=== PATIENT | female | born 1980 | race Caucasian/White ===

== ENCOUNTER 2025-05-31 07:00 | Day surgery (SDC) | payer OTHER, SELFPAY ==
[2025-05-27 10:33] VITALS: BMI 22.2
--- NOTE | 2025-05-31 07:31 | WPDHPUPDATE1 ---
History and Physical Update Update Date/Time: 05/31/25 07:31 History and Physical has been reviewed, including an updated exam of the patient. There are NO changes in the patient's condition. Risks, benefits, and alternatives have been discussed and questions answered. Patient agrees to proceed with procedure.
--- OUTSIDE RECORDS SUMMARY | 2025-05-31 08:10 | XMS_ITS | Clinical Summary ---
Author Organization [facility] Address [address] [place] [id number] Care Team Providers Care Feather Baler Name Role Phone No, Physician Primary Care Provider [phone] Allergies No known active allergies Immunizations Immunization Administration Dates Next Due DTP 1980,1980,1980 Influenza, Quadrivalent, Spl it, Preservative Free, Intramuscular 03/26/2018 Influenza, Unspecified 06/17/2024 OPV 1980,1980,1980 Medical History Medical History Date Comments Asthma Social History Tobacco Use Types Packs/Day Years Used Date Smoking Tobacco: Every Day Cigarettes Smokeless Tobacco: Never Alcohol Use Standard Drinks/Week Comments Not Currently 0 (1 standard drink = 0.6 oz pur e alcohol) Personal Safety Answer Date Recorded Getting School Help Needed Not on file 08/09 Comments No Sex and Gender Information Value Date Recorded Sex Assigned at Not on file Legal Sex Female 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 Gender Identity Not on file Sexual Orientation Not on file Last Filed Vital Signs Vital Sign Reading Time Taken Comments Blood Pressure 133/89 12/26/2021 11:33 PM CDT Pulse 87 12/26/2021 11:33 PM CDT Temperature 37 C (98.6 F) 12/26/2021 11:33 PM CDT Respiratory Rate 16 12/26/2021 11:33 PM CDT Oxygen Saturation 97% 12/26/2021 11:33 PM CDT Inhaled Oxygen Concentration - - Weight 46.7 kg (103 lb) 12/26/2021 11:33 PM CDT Height 149.9 cm (4' 11) 12/26/2021 11:33 PM CDT Body Mass Index 20.8 12/26/2021 11:33 PM CDT Plan of Treatment Not on file Insurance [facility] Care Teams Feather Baler Relationship Specialty Start Date End Date No, Physician PCP - General 12/27/21
--- OUTSIDE RECORDS SUMMARY | 2025-05-31 08:10 | XMS_ITS | Clinical Summary ---
Author Organization [facility] Address [address] [place] [id number] Care Team Providers Care Lens Block Gauger Name Role Phone Unavailable Primary Care Provider Unavailabl e Encounters Date Type Department Care Team Description 05/18/2025 Telephone [facility] Family Medicine - [address] [place] [address] Romelia Garcia, ENVIRONMENTAL ENGINEERING INTERN Appointment Reminder from Last 3 Months Social History Tobacco Use Types Packs/Day Years Used Date Smoking Tobacco: Never Assessed Comments Unknown Sex and Gender Information Value Date Recorded Sex Assigned at Female 05/17/2025 2:27 PM RESEARCH CLERK Legal Sex Female 10:18 AM RESEARCH CLERK Gender Identity Female 05/17/2025 2:27 PM RESEARCH CLERK Sexual Orientation Straight 05/17/2025 2: 27 PM RESEARCH CLERK Plan of Treatment Health Maintenance Due Date Last Done Comments Cervical Cancer Screening Pa p Smear (Age 30 to 64) Every 3 Years 1980 Colorectal Cancer Screening Colonoscopy (10 Years) 1980 Annual Physical 02/01/1983 Hepatitis C 02/01/1998 DTaP, Tdap and Td Vaccines ( 1 - Tdap) 02/01/1999 Hepatitis B Vaccines (1 of 3 - 19+ 3-dose series) 02/01/1999 HPV Vaccines (1 - 3-dose SCD M series) 02/01/2007 Cervical Cancer Screening Pa p with HPV Testing (Age 30 to 64) Every 5 Years 02/01/2010 Cervical Cancer Screening with HPV 02/01/2010 Mammogram Screening 2020 COVID-19 Vaccine (2024-2 6 season) 2025 Influenza Adult (#1) 2025 Hepatitis A Vaccines Aged Out No long er eligible based on patient's age to complete this topic Meningococcal B Vaccine Aged Out No l onger eligible based on patient's age to complete this topic Meningococcal Vaccine Aged Out No deandre daren eligible based on patient's age to complete this topic Pneumococcal Vaccine: Pediat rics (0 to 5 Years) and At-Risk Patients (6 to 49 Years) Aged Out No longer eligible b ased on patient's age to complete this topic RSV Immunizations Under 20 Months Aged Out No longer eligible based on patient's age to complete this topic
[2025-05-31 08:15] VITALS: BP 155/85; PULSE 78; RESP 15; TEMP 37; O2SAT 98
[2025-05-31] MEDS: LACTATED RINGERS 1,000 ML 30 ML IV CONT (09:04)
--- NOTE | 2025-05-31 10:40 | WPDANESEPPF ---
Anes - Initial Pre Proc Eval Procedure: Operation Date: 05/31/25 09:45 Proposed Procedures p Microdirect Laryngoscopy with Tongue Base Evaluation and Biopsy, Oral Cavity Biopsy - Caden Driscoll MD Date/Time: 05/31/25 10:40 Surgeon: Caden Driscoll MD Pre Op Diagnosis: other disease of larynx,oral mucosa Patient Data Age: 45 Gender: F Height: 1.5 m Weight: 48.85 kg Last Vital Signs Temp 98.6 F 05/31/25 08:15 Pulse 78 05/31/25 08:15 Resp 15 05/31/25 08:15 BP 155/85 H 05/31/25 08:15 Pulse Ox 98 05/31/25 08:15 O2 Del Method Room Air 05/31/25 08:15 Allergies Allergy/AdvReac Type Severity Reaction Status Date / Time No Known Allergies Allergy Verified 05/31/25 08:14 Home Medications ?Medication ?Instructions ?Recorded ?Confirmed ?Type buspirone 15 mg tablet 15 mg PO DAILY 05/26/25 05/31/25 History hydroxyzine HCl 50 mg tablet 50 mg PO TID 05/26/25 05/31/25 History nicotine 14 mg/24 hr daily 1 patch topical Q24H 05/26/25 05/31/25 History transdermal patch alprazolam 0.5 mg tablet 0.5 mg PO QID PRN anxiety 05/27/25 05/31/25 History Patient hx anesthesia problems: other (wake up couging) Family hx anesthesia problems: none Results Review: All pre-operative results and documents have been reviewed as part of the pre-operative evaluation. [facility] Social History Social History (Updated 05/26/25 @ 11:09 by Navarro Fernandes MA) Smoking packs per day: 0.5 Smoking cigarettes per day: 10.0 Years smoked: 30 Smoking pack-years: 15.00 Smoking status: Current every day smoker Tobacco type: cigarettes Second hand tobacco smoke exposure: Yes Smoking end date: 05/24/25 Alcohol intake: current Drinks per week: 0 Alcohol use details: 1 A MONTH Substance use: never Substance use type: does not use Living arrangements: alone Spiritual care concerns: No Anes - Eval Final PreProcedure Day of Procedure 05/31/25 10:40 Heart: regular rate and rhythm Lungs: clear to auscultation Airway: Mallampati scale class II Neurological: alert and oriented Last oral intake: >/= 8 hours ASA classification: II Anesthetic plan: proceed Anesthesia type and monitoring: general Results Review: All pre-operative results and documents have been reviewed as part of the pre-operative evaluation. Informed Consent: The patient's anesthetic plan and its attendant risks and benefits were discussed with the patient/family/POA. Questions were solicited and answers provided to the satisfaction of the patient/family/POA.
[2025-05-31] MEDS: OXYMETAZOLINE HCL 0.05% NAS 15 ML BTL (*BKC) 1 SPRAY (11:45)
[2025-05-31 12:09] VITALS: BP 130/87; PULSE 110; RESP 22; TEMP 36.4; O2SAT 98
--- NOTE | 2025-05-31 12:19 | W.PM.PROC2 ---
Procedure Note - Detailed Date of Procedure 05/31/25 Pre-op Diagnosis Tongue base lesion, oral cavity lesion Post-op Diagnosis Same Procedure Performed 1. Direct laryngoscopy with biopsy of tongue base/vallecular lesion 2. Biopsy of right-sided oral cavity lesion Surgeon Caden Driscoll MD Anesthesia General Indications See above Findings Right retromolar trigone lesion it appears to be a vascular lesion not malignant. 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 Patient brought operating. Time-out performed. General anesthesia induced endotracheal tube secured. Patient prepped draped position procedure confirmed 2nd time-out performed. Maxillary tooth mouth guard placed. Laryngoscope entered follicular tongue base noted to have friable abnormal appearing tissue this was biopsied. Bleeding controlled with application of Afrin-soaked pledgets. No bleeding when I was done. Afrin-soaked pledgets removed laryngoscope removed. Maxillary tooth mouth guard removed. McIvor mouth gag inserted opened right oral cavity lesion examined biopsy with Lizzy forceps bleeding controlled application of tonsil balls covered in Afrin. After 5 minutes of pressure the bleeding stop. McIvor mouth gag removed maxillary tooth mouth guard replace laryngoscope replaced no bleeding from the tongue base laryngoscope maxillary tooth mouth guard removed McIvor mouth gag replaced open no bleeding from the right retromolar trigone lesion. McIvor mouth gag removed. Care the patient back to Anesthesiology. I performed all dictated portions of the procedure. Blood loss weight less than 1 cc. No complications. Patient taken to PACU condition. Estimated Blood Loss 1 Drains No Packing No Pathology Yes Complications No immediate complications Condition Stable Disposition PACU [facility] Billing Surgery - Charge Forward: Surgery Billing
[2025-05-31 12:24] VITALS: BP 112/92; PULSE 92; RESP 18; O2SAT 96
[2025-05-31 12:38] VITALS: BP 106/75; PULSE 83; RESP 16; O2SAT 94
[2025-05-31 12:48] VITALS: BP 115/75; PULSE 79; RESP 16; O2SAT 94
[2025-05-31 12:58] VITALS: BP 108/74; PULSE 77; RESP 17; O2SAT 95
== END 2025-05-31 13:15 | disposition home or self-care (01) ==
PROVIDERS: Visit Provider Otolaryngology
PROC: 0CJS8ZZ Inspection of Larynx, Via Natural or Artificial Opening Endoscopic (ICD-10-PCS; CPT 31535; principal; 2025-05-31 09:45)
DX: K13.79 Other lesions of oral mucosa (principal); K14.8 Other diseases of tongue
CPT/HCPCS: 31535; 40808

== ENCOUNTER 2025-05-31 09:34 | Outpatient (NON) | payer OTHER, SELFPAY ==
--- NOTE | 2025-05-31 | S_PTH ---
PATIENT: Geri Thrasher LOC: [facility] U#:[id number] AGE/SX: 45/F ROOM: RE05/31/[address]: Caden Driscoll MD : 1980 BED: DIS: 05/31/2025 SPEC #: [id number] RECD: 06/01/25 10:00 STATUS: LYNNE MARCUS #: [id number] GRETA: 05/31/25 00:[address]: Caden Driscoll DEPT: [facility] Surgical RECD BY: Taylor Alfredo ENTERED: 06/01/25 10:01 SP TYPE: Surgical OTHR DR: UNKNOWN,DOCTOR Tissues: A - Skin B - Biopsy Procedures: Hines Keratin Hematoxylin and Eosin Stain Gross and Microscopic Level 4 CD3 CD 20 CK 5
--- OUTSIDE RECORDS SUMMARY | 2025-06-01 10:45 | XMS_ITS | Clinical Summary ---
Author Organization [facility] Address [address] [place] [id number] Care Team Providers Care Restorative Coordinator Name Role Phone Unavailable Primary Care Provider Unavailabl e Encounters Date Type Department Care Team Description 05/18/2025 Telephone [facility] Family Medicine - [address] [place] [address] Romelia Garcia, ALL AROUND GEAR MACHINE OPERATOR Appointment Reminder from Last 3 Months Social History Tobacco Use Types Packs/Day Years Used Date Smoking Tobacco: Never Assessed Comments Unknown Sex and Gender Information Value Date Recorded Sex Assigned at Female 05/17/2025 2:27 PM CORE STACKER Legal Sex Female 10:18 AM CORE STACKER Gender Identity Female 05/17/2025 2:27 PM CORE STACKER Sexual Orientation Straight 05/17/2025 2: 27 PM CORE STACKER Plan of Treatment Health Maintenance Due Date [...]
--- OUTSIDE RECORDS SUMMARY | 2025-06-01 10:45 | XMS_ITS | Clinical Summary ---
Author Organization [facility] Address [address] [place] [phone] Care Team Providers Care Laboratory Equipment Cleaner Name Role Phone No, Physician Primary Care Provider [phone] Allergies No known active allergies Immunizations Immunization [...] on file Legal Sex Female 9:33 PM OIL PROCESS STILLMAN Gender Identity Not on file Sexual Orientation [...] Plan of Treatment Not on file Insurance [facility] Care Teams Laboratory Equipment Cleaner Relationship Specialty Start Date End Date No, Physician PCP - General 12/27/21
== END 2025-05-31 09:35 | disposition home or self-care (01) ==
LOC: ANHLAB 06-01 09:35
PROVIDERS: Visit Provider Otolaryngology
DX: K13.79 Other lesions of oral mucosa (principal); J38.7 Other diseases of larynx
CPT/HCPCS: 88305; 88342